=== PATIENT | male | born 1960 | race Caucasian/White ===

== ENCOUNTER → 2021-01-19 | Outpatient (CLI) | payer OTHER ==
[~2021-01-19] MED LIST: ATORVASTATIN CA80 MG PO; IMDUR ER TAB 3030 MG PO; LOPRESSOR 25 MG25 MG PO; PLAVIX 75 MG TA75 MG PO; PRINIVIL10 MG PO; PROTONIX40 MG PO; ROBAXIN-750750 MG PO; VITAMIN D32000 UNI1 PO
== END ==
LOC: RAD 09:40
DX: M79.645 Pain in left finger(s) (principal); M54.5 Low back pain; M54.9 Dorsalgia, unspecified; M47.816 Spondylosis without myelopathy or radiculopathy, lumbar region; M47.814 Spondylosis without myelopathy or radiculopathy, thoracic region; M19.042 Primary osteoarthritis, left hand
CPT/HCPCS: 72072; 72110; 73130

== ENCOUNTER → 2021-08-28 | Outpatient (CLI) | payer OTHER | LOC: EXRD 12:54 | DX: I51.9 Heart disease, unspecified (principal); R06.02 Shortness of breath; I73.9 Peripheral vascular disease, unspecified; I35.8 Other nonrheumatic aortic valve disorders | CPT/HCPCS: 93306; 93922; 93925 ==

== ENCOUNTER → 2021-09-29 | Outpatient (CLI) | payer OTHER | LOC: CT 15:19 | DX: I73.9 Peripheral vascular disease, unspecified (principal); E83.42 Hypomagnesemia | CPT/HCPCS: 36415; 75635; 82565; 83735; 84520; Q9967 ==

== ENCOUNTER → 2021-10-06 | Outpatient (CLI) | payer OTHER | LOC: KOH-I 09:30 | DX: F17.210 Nicotine dependence, cigarettes, uncomplicated (principal) | CPT/HCPCS: 71271 ==

== ENCOUNTER 2021-12-15 06:44 | Outpatient (CLI) | payer OTHER ==
[~2021-12-15] VITALS: Ht 175.3 cm; Wt 129.5 kg
[~2021-12-15 06:44] MED LIST changes: -IMDUR ER TAB 3030 MG PO; +ISOSORBIDE MONO30 MG PO; +LISINOPRIL40 MG PO; -LOPRESSOR 25 MG25 MG PO; +LOPRESSOR50 MG PO; -PRINIVIL10 MG PO; +ROBAXIN 750 MG750 MG PO; -ROBAXIN-750750 MG PO; -VITAMIN D32000 UNI1 PO; +VITAMIN D350 MC3 PO
[2021-12-15 07:30] LABS: HEMOGLOBIN 12.5 gm/dl (14.0-17.5); RED BLOOD COUNT 3.98 M/UL (4.20-5.50); WHITE BLOOD COUNT 7.3 K/UL (4.5-11.0)
[2021-12-15 07:43] LABS: BUN/CREATININE RATIO 32 (0-10)
[2021-12-15] MEDS ORDERED: PROAIR HFA8.5 GM INH (08:10)
[2021-12-15] MEDS ORDERED: NORVASC10 MG PO (08:11)
[2021-12-15] MEDS ORDERED: ASPIRIN81 MG PO (08:11)
[2021-12-15] MEDS ORDERED: CILOSTAZOL50 MG PO ×2 (08:12→14:18)
[2021-12-15] MEDS ORDERED: ALL DAY ALLERGY10 M2 PO (08:12)
[2021-12-15] MEDS ORDERED: FAMOTIDINE40 MG PO ×2 (08:13→14:27)
[2021-12-15] MEDS ORDERED: ADVAIR 250-501 EACH INH (08:14)
[2021-12-15] MEDS ORDERED: ADVAIR HFA 115/1 INH INH (08:15)
[2021-12-15] MEDS ORDERED: HYDROCHLOROTHIA25 MG PO (08:16)
[2021-12-15] MEDS ORDERED: MAGNESIUM OXID400 M2 PO (08:22)
[2021-12-15] MEDS ORDERED: MONTELUKAST SOD10 MG PO (08:24)
[2021-12-15] MEDS ORDERED: TRITOCIN430 GM TP (08:25)
[2021-12-15] MEDS ORDERED: PROTONIX 40 MG40 M1 PO (14:22)
[2021-12-15] MEDS ORDERED: FLONASE 0.05% N16 GM (14:28)
[2021-12-15] MEDS ORDERED: NITROGLYCERIN0.4 MG SL (14:29)
[2021-12-15] MEDS ORDERED: METFORMIN HCL500 MG PO (14:29)
[2021-12-15] MEDS ORDERED: TRIAMCINOLONE A80 G1 TOP (14:30)
[2021-12-16 02:22] LABS: HEMOGLOBIN 11.8 gm/dl (14.0-17.5); RED BLOOD COUNT 3.69 M/UL (4.20-5.50)
[2021-12-16 02:53] LABS: BUN/CREATININE RATIO 24 (0-10)
== END 2021-12-16 10:30 | disposition home or self-care (01) ==
LOC: CATH 06:44 → PROG CARE 13:13 → CATH 12-16 10:30
PROVIDERS: Internal Medicine Cardiovascular Disease
DX: I70.212 Atherosclerosis of native arteries of extremities with intermittent claudication, left leg (principal); I70.92 Chronic total occlusion of artery of the extremities; I25.10 Atherosclerotic heart disease of native coronary artery without angina pectoris; I10 Essential (primary) hypertension; E11.9 Type 2 diabetes mellitus without complications; J42 Unspecified chronic bronchitis; I25.2 Old myocardial infarction; M19.90 Unspecified osteoarthritis, unspecified site; K22.70 Barrett's esophagus without dysplasia; F17.210 Nicotine dependence, cigarettes, uncomplicated; E78.2 Mixed hyperlipidemia; K21.9 Gastro-esophageal reflux disease without esophagitis; E66.9 Obesity, unspecified; Z79.51 Long term (current) use of inhaled steroids; Z79.82 Long term (current) use of aspirin; Z79.02 Long term (current) use of antithrombotics/antiplatelets; Z79.811 Long term (current) use of aromatase inhibitors; Z79.84 Long term (current) use of oral hypoglycemic drugs
CPT/HCPCS: 36415; 71046; 75630; 75716; 80048; 80053; 80061; 82570; 82607; 82962; 83036; 83735; 84156; 85025; 85347; 85610; 99152; 99153; C1725; C1887; C1894; C2623; J1170; J1200; J1644; J2250; J2720; J2930; J3010; J7040; Q9965

== ENCOUNTER → 2022-02-12 | Outpatient (CLI) | payer OTHER ==
[~2022-02-12] MED LIST changes: +ADVAIR 250-501 EACH INH; +ADVAIR HFA 115/1 INH INH; +ALL DAY ALLERGY10 M2 PO; +ASPIRIN81 MG PO; +CILOSTAZOL50 MG PO; +FAMOTIDINE40 MG PO; +FLONASE 0.05% N16 GM; +HYDROCHLOROTHIA25 MG PO; +MAGNESIUM OXID400 M2 PO; +METFORMIN HCL500 MG PO; +MONTELUKAST SOD10 MG PO; +NITROGLYCERIN0.4 MG SL; +NORVASC10 MG PO; +PROAIR HFA8.5 GM INH; +PROTONIX 40 MG40 M1 PO; +TRIAMCINOLONE A80 G1 TOP; +TRITOCIN430 GM TP
== END ==
LOC: HEART 5 14:57
DX: J42 Unspecified chronic bronchitis (principal)
CPT/HCPCS: 94060; 94729

== ENCOUNTER → 2022-04-24 | Outpatient (CLI) | payer OTHER | LOC: KOH-I 10:46 | DX: R79.89 Other specified abnormal findings of blood chemistry (principal); K76.0 Fatty (change of) liver, not elsewhere classified | CPT/HCPCS: 76700 ==